=== PATIENT | male | born 1985 | race Caucasian/White ===

== ENCOUNTER 2020-05-13 13:02 | Emergency (ER) | payer BC ==
[~2020-05-13] VITALS: Ht 175.3 cm; Wt 113.7 kg
[2020-05-13] MEDS ORDERED: FAMOTIDINE 20 MG TABLET PO ONE (13:30)
[2020-05-13] MEDS ORDERED: MAALOX/HYOSCYAMINE/LIDOCAINE 45 ML BTL PO ONE (13:30)
[2020-05-13] MEDS ORDERED: FAMOTIDINE 20 MG TABLET ONE (13:35)
[2020-05-13] MEDS ORDERED: MAALOX/HYOSCYAMINE/LIDOCAINE 45 ML BTL ONE (13:35)
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
[2020-05-13 13:53] LABS: BASOPHILS # (AUTO) 0.04 x10^3/uL (0-0.1); BASOPHILS % (AUTO) 1 % (0-1); EOSINOPHILS % (AUTO) 1 % (1-7); LYMPHOCYTES # (AUTO) 1.94 x10^3/uL (1-3.4); LYMPHOCYTES % (AUTO) 26 % (22-44); MD NO; MEAN CORPUSCULAR HEMOGLOBIN 31.7 pg (27.5-34.5); MEAN CORPUSCULAR HGB CONC 33.2 g/dL (33.2-36.2); MEAN PLATELET VOLUME 8.1 fL (7.4-10.4); MONOCYTES # (AUTO) 0.48 x10^3/uL (0.2-0.8); MONOCYTES % (AUTO) 6 % (2-9); NEUTROPHILS # (AUTO) 4.99 x10^3/uL (1.8-6.8); NEUTROPHILS % (AUTO) 66 % (42-75); PLATELET COUNT 232 x10^3/uL (130-400); RED BLOOD COUNT 5.18 x10^6/uL (4.38-5.82); RED CELL DISTRIBUTION WIDTH 14.2 % (9.4-14.8)
[2020-05-13 14:02] LABS: ALANINE AMINOTRANSFERASE 58 U/L (12-78); ALBUMIN 3.7 g/dL (3.4-5.0); ANION GAP 8 mmol/L (5-15); CALCIUM 8.7 mg/dL (8.5-10.1); CHLORIDE 110 mmol/L (98-107)
[2020-05-13 14:07] LABS: ALKALINE PHOSPHATASE 80 U/L (45-117); BILIRUBIN,TOTAL 0.5 mg/dL (0.2-1.0); CREATININE 1.29 mg/dL (0.7-1.3); TOTAL PROTEIN 7.7 g/dL (6.4-8.2); TROPONIN I < 0.015 ng/mL (0.000-0.045)
[2020-05-13 14:32] VITALS: BP 134/75
--- NOTE | 2020-05-13 14:33 | NUR ---
break RN note: all results back, chart up for recheck. awaiting MD and dispo.
--- NOTE | 2020-05-13 15:16 | NUR ---
pt reports chest pain improved s/p meds, pt given dc insructions and script, educated regarding dc rx. pt a&o, resps even and unlabored, nadn. pt ambulatory to dc desk with steady gait. all questions answered.
== END 2020-05-13 15:20 | disposition home or self-care (01) ==
LOC: ED 15:03
DX: K21.0 Gastro-esophageal reflux disease with esophagitis (principal); R07.89 Other chest pain; R20.2 Paresthesia of skin; I10 Essential (primary) hypertension
CPT/HCPCS: 36415; 71045; 80053; 83690; 84484; 85025; 93005; 99285

== ENCOUNTER 2021-06-01 18:24 | Emergency (ER) | payer BC ==
[~2021-06-01] VITALS: Ht 175.3 cm; Wt 114.5 kg
--- NOTE | 2021-06-01 21:54 | NUR ---
PT. TO ROOM FROM LOBBY AT THIS TIME. AMBULATORY WITH STEADY GAIT.
[2021-06-01] MEDS ORDERED: MORPHINE SULFATE 4 MG/ML, 1ML ONE (22:38)
[2021-06-01] MEDS ORDERED: ONDANSETRON 2MG/ML, 2ML ONE (22:38)
[2021-06-01] MEDS ORDERED: MORPHINE SULFATE 4 MG/ML, 1ML IVPush PRN (23:00)
[2021-06-01] MEDS ORDERED: ONDANSETRON 2MG/ML, 2ML IVPush ONE (23:00)
[2021-06-01] MEDS ORDERED: SODIUM CHLORIDE FLUSH 10ML SYR IVF ONE (23:00)
--- NOTE | 2021-06-01 23:01 | NUR ---
IV WAS ESTABLISHED AND PT. WAS MEDICATED PER DEC. LABS SENT. PT. DENIES NEEDS AT THIS TIME. REPORTS RELIEF FROM PAIN AFTER MEDS FROM 06/27 DOWN TO 02/24.
[2021-06-01 23:05] LABS: BASOPHILS % (AUTO) 1 % (0-1); EOSINOPHILS % (AUTO) 1 % (1-7); LYMPHOCYTES % (AUTO) 28 % (22-44); MEAN CORPUSCULAR HEMOGLOBIN 32.6 pg (27.5-34.5); MEAN CORPUSCULAR HGB CONC 34.4 g/dL (33.2-36.2); MEAN PLATELET VOLUME 8.7 fL (7.4-10.4); MONOCYTES % (AUTO) 13 % (2-9); NEUTROPHILS % (AUTO) 56 % (42-75); PLATELET COUNT 220 x10^3/uL (130-400); RED BLOOD COUNT 5.02 x10^6/uL (4.38-5.82); RED CELL DISTRIBUTION WIDTH 13.8 % (9.4-14.8)
[2021-06-01 23:09] LABS: ALANINE AMINOTRANSFERASE 85 U/L (12-78); ALBUMIN 3.6 g/dL (3.4-5.0); ANION GAP 7 mmol/L (5-15); CALCIUM 9.4 mg/dL (8.5-10.1); CHLORIDE 107 mmol/L (98-107); CREATININE 1.66 mg/dL (0.7-1.3)
[2021-06-01 23:11] LABS: ALKALINE PHOSPHATASE 96 U/L (45-117); BILIRUBIN,TOTAL 0.5 mg/dL (0.2-1.0); TOTAL PROTEIN 7.7 g/dL (6.4-8.2)
[2021-06-01] MEDS ORDERED: SODIUM CHLORIDE 0.9% 1,000ML IVBOLUS ONE (23:30)
--- NOTE | 2021-06-01 23:50 | NUR ---
PT. RETURN FORM CT. IVF INFUISNG PER ORDER. PT. REMAINS AWARE OF NEED FOR URINE SAMPLE.
[2021-06-02] MEDS ORDERED: OMNIPAQUE 350 MG/ML, 100ML BOTTLE ONE (00:02)
[2021-06-02] MEDS ORDERED: PROP10TA16 PO (00:19)
[2021-06-02] MEDS ORDERED: LISI-170 PO (00:19)
[2021-06-02] MEDS ORDERED: OMEP-110 PO (00:19)
[2021-06-02 00:47] VITALS: BP 121/65
--- NOTE | 2021-06-02 00:47 | NUR ---
PT. RESTING ON GURNEY WITH EYES CLOSED. NO DISTRESS NOTED. IVF COMPLETED. PT. HAS BEEN UNABLE TO PROVIDE URINE SAMPLE. WAKING PT. TO REQUEST SAMPLE AGAIN.
== END 2021-06-02 01:16 | disposition home or self-care (01) ==
LOC: ED 23:27
DX: S20.211A Contusion of right front wall of thorax, initial encounter (principal); M54.5 Low back pain; R10.9 Unspecified abdominal pain; I10 Essential (primary) hypertension; F17.210 Nicotine dependence, cigarettes, uncomplicated; W01.0XXA Fall on same level from slipping, tripping and stumbling without subsequent striking against object, initial encounter; Y93.89 Activity, other specified; Y92.009 Unspecified place in unspecified non-institutional (private) residence as the place of occurrence of the external cause; Y99.8 Other external cause status
CPT/HCPCS: 36415; 71101; 74177; 80053; 85025; 96361; 96374; 96375; 99285; 99406; J2270; J2405; J7030; Q9967